=== PATIENT | female | born 1945 | race Two or more races ===

== ENCOUNTER 2018-08-18 12:17 | Emergency (ER) | payer MEDICARE, BC ==
[~2018-08-18] VITALS: Ht 167.6 cm; Wt 70.8 kg
[2018-08-18 12:20] VITALS: BP 135/81
--- NOTE | 2018-08-18 14:34 | NUR ---
[facility] CALLED. ETA 1600. TRIP # [id number]
--- NOTE | 2018-08-18 16:58 | NUR ---
PT D/C [facility]. STABLE CONDITION.
== END 2018-08-18 17:00 | disposition home or self-care (01) ==
LOC: ER 12:22
DX: Z45.2 Encounter for adjustment and management of vascular access device (principal); I10 Essential (primary) hypertension; K21.9 Gastro-esophageal reflux disease without esophagitis
CPT/HCPCS: 36569; 71045-TC